=== PATIENT | female | born 1930 | race Caucasian/White ===

== ENCOUNTER → 2016-05-15 | Outpatient (CLI) | payer OTHER ==
[~2016-05-15] MED LIST: ACET-1256 PO; ADVIN50/60 INH; ALBU0.08 NEB; ALBU1AER9 INH; ARTIFICAL TEARS OPB; ARTISPR OR; ASPI81TA21 PO; ATRINS INH; Amoxicillin/Clavulanate Potas PO; BECL0.3A INH; CITA40TA12 PO; DEXT30TA7 PO; DULCOLAX SUPPOSITORY RE; FLUT0.0529 NAE; FURO-85 PO; GFNSR600 PO; INSDGIPEN SC; IPRASOL4 INH; LDDP5 TD; LEVO50TA6 PO; LORA-741 PO; LVMI IM; MOML PO; MONT1TAB5 PO; NVLGI7030 SC; NVLGIPEN SC; OMEP20CA59 PO; PRNJ PO; PROM1SUP19 PR; PRT40 PO; SIMV20TA2 PO; SODIENE PR; TRAM-10 PO; TYLOTC500 PO; XPNINS1255 INH; ZNTT/150 PO
[2016-05-15 08:37] LABS: FERRITIN 20.5 ng/ml (8.0-388.0)
[2016-05-15 08:49] LABS: BASO % 1.3 %; BASO ABS # 0.09 K/uL (0-0.2); COMPLETE YES; EOS % 9.6 %; HEMATOCRIT 29.9 % (37-47); IG% 0.1 %; LYMPH % 19.9 %; LYMPH ABS # 1.33 K/uL (1.2-3.4); MEAN CELL VOLUME 80.8 fL (80-100); MEAN CORPUSCULAR HEMOGLOBIN 24.6 pg (25-34); MEAN CORPUSCULAR HGB CONC 30.4 g/dl (32-36); MEAN PLATELET VOLUME 10.2 fL (7.4-10.4); MONO % 11.7 %; NEUT % 57.4 %; PLATELET COUNT 272 K/uL (130-400); WHITE BLOOD COUNT 6.69 K/uL (4.8-10.8)
== END ==
LOC: C.LABCC 07:49
PROVIDERS: ATTEND Internal Medicine
DX: E61.1 Iron deficiency (principal); D64.9 Anemia, unspecified; Z13.0 Encounter for screening for diseases of the blood and blood-forming organs and certain disorders involving the immune mechanism

== ENCOUNTER → 2016-06-01 | Outpatient (CLI) | payer OTHER ==
[~2016-06-01] MED LIST changes: -ACET-1256 PO; -ALBU1AER9 INH; -ATRINS INH; -Amoxicillin/Clavulanate Potas PO; -BECL0.3A INH; -INSDGIPEN SC; -LDDP5 TD; -NVLGIPEN SC; -PRT40 PO; -TRAM-10 PO; -TYLOTC500 PO; -XPNINS1255 INH
[2016-06-01 08:25] LABS: BASO % 0.1 %; BASO ABS # 0.01 K/uL (0-0.2); COMPLETE YES; EOS % 1.9 %; HEMATOCRIT 31.8 % (37-47); IG% 1.5 %; LYMPH % 25.6 %; LYMPH ABS # 2.19 K/uL (1.2-3.4); MEAN CELL VOLUME 79.7 fL (80-100); MEAN CORPUSCULAR HEMOGLOBIN 25.1 pg (25-34); MEAN CORPUSCULAR HGB CONC 31.4 g/dl (32-36); MEAN PLATELET VOLUME 9.7 fL (7.4-10.4); MONO % 9.1 %; NEUT % 61.8 %; PLATELET COUNT 265 K/uL (130-400); RED BLOOD COUNT 3.99 M/uL (4.2-5.4); WHITE BLOOD COUNT 8.54 K/uL (4.8-10.8)
[2016-06-01 08:37] LABS: FERRITIN 547.8 ng/ml (8.0-388.0)
== END ==
LOC: C.LABCC 08:09
PROVIDERS: ATTEND Internal Medicine
DX: E61.1 Iron deficiency (principal)

== ENCOUNTER → 2016-07-23 | Outpatient (CLI) | payer OTHER ==
[2016-07-23 08:50] LABS: BASO % 0.9 %; BASO ABS # 0.05 K/uL (0-0.2); COMPLETE YES; EOS % 9.2 %; IG% 0.2 %; LYMPH % 28.4 %; LYMPH ABS # 1.66 K/uL (1.2-3.4); MEAN CELL VOLUME 88.2 fL (80-100); MEAN CORPUSCULAR HEMOGLOBIN 28.3 pg (25-34); MEAN CORPUSCULAR HGB CONC 32.1 g/dl (32-36); MEAN PLATELET VOLUME 10.2 fL (7.4-10.4); MONO % 11.6 %; NEUT % 49.7 %; PLATELET COUNT 255 K/uL (130-400); RED BLOOD COUNT 4.31 M/uL (4.2-5.4); WHITE BLOOD COUNT 5.84 K/uL (4.8-10.8)
[2016-07-23 09:08] LABS: BLOOD UREA NITROGEN 27 mg/dl (7-18); BUN/CREATININE RATIO 13.6 (10-20); CALCIUM 8.9 mg/dl (8.5-10.1); CARBON DIOXIDE 25 mmol/L (21-32); CHLORIDE 110 mmol/L (98-107); GLUCOSE 131 mg/dl (70-99); POTASSIUM 4.1 mmol/L (3.5-5.1); SODIUM 143 mmol/L (136-145)
[2016-07-23 09:12] LABS: FERRITIN 91.2 ng/ml (8.0-388.0); PHOSPHORUS 3.9 mg/dl (2.5-4.9); TOTAL IRON BINDING CAPACITY 230 mcg/dl (250-450)
== END ==
LOC: C.LABCC 08:18
PROVIDERS: ATTEND Internal Medicine
DX: I12.9 Hypertensive chronic kidney disease with stage 1 through stage 4 chronic kidney disease, or unspecified chronic kidney disease (principal); N18.3 Chronic kidney disease, stage 3 (moderate)

== ENCOUNTER → 2016-08-04 | Outpatient (CLI) | payer OTHER | LOC: C.LABCC 08:25 | PROVIDERS: ATTEND Internal Medicine | DX: E03.9 Hypothyroidism, unspecified (principal) ==

== ENCOUNTER → 2016-09-15 | Outpatient (CLI) | payer OTHER ==
[2016-09-15 08:05] LABS: BASO % 0.8 %; BASO ABS # 0.05 K/uL (0-0.2); COMPLETE YES; EOS % 8.5 %; HEMATOCRIT 35.8 % (37-47); IG% 0.2 %; LYMPH % 22.4 %; LYMPH ABS # 1.42 K/uL (1.2-3.4); MEAN CORPUSCULAR HEMOGLOBIN 29.8 pg (25-34); MEAN CORPUSCULAR HGB CONC 32.4 g/dl (32-36); MEAN PLATELET VOLUME 10.2 fL (7.4-10.4); MONO % 9.5 %; NEUT % 58.6 %; PLATELET COUNT 211 K/uL (130-400); RED BLOOD COUNT 3.89 M/uL (4.2-5.4); WHITE BLOOD COUNT 6.33 K/uL (4.8-10.8)
[2016-09-15 08:13] LABS: PARTIAL THROMBOPLASTIN RATIO 1.1; PROTHROMBIN TIME (PATIENT) 10.5 SECONDS (9.0-12.0)
[2016-09-15 08:14] LABS: ALT/SGPT 22 U/L (12-78); BLOOD UREA NITROGEN 29 mg/dl (7-18); BUN/CREATININE RATIO 17.1 (10-20); CARBON DIOXIDE 26 mmol/L (21-32); CHLORIDE 109 mmol/L (98-107); GLUCOSE 130 mg/dl (70-99); POTASSIUM 4.2 mmol/L (3.5-5.1); SODIUM 142 mmol/L (136-145)
[2016-09-15 08:16] LABS: ALKALINE PHOSPHATASE 85 U/L (45-117); AST/SGOT 17 U/L (15-37)
== END ==
LOC: C.LABCC 07:50
PROVIDERS: ATTEND Internal Medicine
DX: S40.022A Contusion of left upper arm, initial encounter (principal); X58.XXXA Exposure to other specified factors, initial encounter

== ENCOUNTER → 2016-09-21 | Outpatient (CLI) | payer OTHER ==
--- NOTE | 2016-09-21 14:00 | DIAGNOSTIC IMAGING REPORT ---
LEFT ARM ULTRASOUND CLINICAL HISTORY: PARTIAL LEFT BICEP TEAR HEMATOMA COMPARISON STUDY: No previous studies for comparison. FINDINGS: There is a 10 cm complex mass involving the biceps. This likely represents a hematoma. The findings are likely secondary to a biceps tear. Images are not adequate to determine with this represents a complete biceps rupture. An MRI could be obtained in follow-up as deemed clinically indicated. IMPRESSION: 10 cm mass involving the biceps consistent with a hematoma. The findings are consistent with a biceps tear. A complete rupture cannot be excluded. An MRI could be obtained in follow-up as deemed clinically indicated. Electronically signed by: Tomas Carter M.D. 09/21/2016 1:59 PM Dictated Date/Time: 09/21/2016 1:53 PM
== END | disposition home or self-care (01) ==
LOC: C.ULTRBC 13:33
PROVIDERS: ATTEND Nurse Practitioner Adult Health
DX: S40.022A Contusion of left upper arm, initial encounter (principal); S46.112A Strain of muscle, fascia and tendon of long head of biceps, left arm, initial encounter; X58.XXXA Exposure to other specified factors, initial encounter

== ENCOUNTER → 2016-09-25 | Outpatient (CLI) | payer OTHER ==
[2016-09-25 08:18] LABS: BASO % 0.9 %; BASO ABS # 0.06 K/uL (0-0.2); COMPLETE YES; EOS % 9.5 %; HEMATOCRIT 35.9 % (37-47); IG% 0.2 %; LYMPH % 23.3 %; LYMPH ABS # 1.55 K/uL (1.2-3.4); MEAN CORPUSCULAR HEMOGLOBIN 30.1 pg (25-34); MEAN CORPUSCULAR HGB CONC 32.3 g/dl (32-36); MEAN PLATELET VOLUME 9.9 fL (7.4-10.4); MONO % 11.1 %; PLATELET COUNT 256 K/uL (130-400); RED BLOOD COUNT 3.86 M/uL (4.2-5.4); WHITE BLOOD COUNT 6.64 K/uL (4.8-10.8)
--- NOTE | 2016-10-09 12:41 | CODING QUERY NO DIAGNOSIS ---
TREATMENT RENDERED WITHOUT A DIAGNOSIS To promote full compliance with coding requirements relating to patient care, physician participation is requested in all cases of global marketing specialist uncertainty. Please assist us with providing a diagnosis/symptom for the test(s) below: A diagnosis/symptom was not documented on your Order. A valid diagnosis/symptom is required to bill all insurances. Please remember that we are unable to code a diagnosis of rule out, probable, possible, questionable, or suspected. Tests that require a diagnosis: * CBC W/ AUTO DIFF DIAGNOSIS: Provider Signature: Date: Thank you Bruna Bern [employer] Once completed, please kindly fax back to [phone] For questions please call [phone]
== END ==
LOC: C.LABCC 08:02
PROVIDERS: ATTEND Internal Medicine
DX: S40.022A Contusion of left upper arm, initial encounter (principal); X58.XXXA Exposure to other specified factors, initial encounter

== ENCOUNTER → 2016-10-07 | Outpatient (CLI) | payer OTHER ==
[2016-10-07 13:07] LABS: ESTIMATED AVERAGE GLUCOSE 183 mg/dl; HA1C FLAG Normal (Normal)
== END ==
LOC: C.LABCC 15:41
PROVIDERS: ATTEND Internal Medicine
DX: E11.9 Type 2 diabetes mellitus without complications (principal)

== ENCOUNTER → 2016-10-29 | Outpatient (CLI) | payer OTHER ==
[2016-10-29 08:44] LABS: BASO % 0.6 %; BASO ABS # 0.06 K/uL (0-0.2); COMPLETE YES; EOS % 5.3 %; HEMATOCRIT 33.6 % (37-47); IG% 0.3 %; LYMPH % 19.5 %; LYMPH ABS # 1.87 K/uL (1.2-3.4); MEAN CELL VOLUME 92.1 fL (80-100); MEAN CORPUSCULAR HEMOGLOBIN 30.4 pg (25-34); MEAN PLATELET VOLUME 10.3 fL (7.4-10.4); MONO % 7.5 %; NEUT % 66.8 %; PLATELET COUNT 223 K/uL (130-400); RED BLOOD COUNT 3.65 M/uL (4.2-5.4); WHITE BLOOD COUNT 9.58 K/uL (4.8-10.8)
[2016-10-29 08:56] LABS: ALT/SGPT 29 U/L (12-78); BLOOD UREA NITROGEN 28 mg/dl (7-18); BUN/CREATININE RATIO 14.2 (10-20); CARBON DIOXIDE 25 mmol/L (21-32); CHLORIDE 106 mmol/L (98-107); GLUCOSE 154 mg/dl (70-99); POTASSIUM 3.9 mmol/L (3.5-5.1); SODIUM 139 mmol/L (136-145)
[2016-10-29 09:07] LABS: ALB/GLOB RATIO 0.9 (0.9-2); ALKALINE PHOSPHATASE 85 U/L (45-117); AST/SGOT 20 U/L (15-37)
[2016-10-29 09:11] LABS: CALCIUM 8.8 mg/dl (8.5-10.1)
== END ==
LOC: C.LABCC 07:42
PROVIDERS: ATTEND Internal Medicine
DX: R60.9 Edema, unspecified (principal)

== ENCOUNTER → 2016-10-30 | Outpatient (CLI) | payer OTHER ==
[2016-10-30 09:18] LABS: URINE APPEARANCE CLEAR (CLEAR); URINE BILIRUBIN NEG (NEG); URINE COLOR YELLOW; URINE NITRITE NEG (NEG); URINE SPECIFIC GRAVITY 1.019 (1.000-1.030); UROBILINOGEN NEG (NEG); ZZUR CULT IF INDIC CLEAN CATCH NO
[2016-10-30 09:25] LABS: MANUAL MICROSCOPIC REQUIRED? NO; REVIEW REQ? NO
== END ==
LOC: C.LABCC 07:30
PROVIDERS: ATTEND Internal Medicine
DX: R60.9 Edema, unspecified (principal)

== ENCOUNTER → 2016-11-02 | Outpatient (CLI) | payer OTHER ==
[2016-11-02 11:08] LABS: BLOOD UREA NITROGEN 29 mg/dl (7-18); BUN/CREATININE RATIO 15.4 (10-20); CALCIUM 8.6 mg/dl (8.5-10.1); CARBON DIOXIDE 25 mmol/L (21-32); CHLORIDE 108 mmol/L (98-107); GLUCOSE 231 mg/dl (70-99); POTASSIUM 4.2 mmol/L (3.5-5.1); SODIUM 141 mmol/L (136-145)
== END | disposition home or self-care (01) ==
LOC: C.LABCC 08:39
PROVIDERS: ATTEND Internal Medicine
DX: R60.9 Edema, unspecified (principal)

== ENCOUNTER → 2016-11-05 | Outpatient (CLI) | payer OTHER ==
[2016-11-05 09:06] LABS: BLOOD UREA NITROGEN 31 mg/dl (7-18); BUN/CREATININE RATIO 16.5 (10-20); CALCIUM 8.7 mg/dl (8.5-10.1); CARBON DIOXIDE 28 mmol/L (21-32); CHLORIDE 108 mmol/L (98-107); GLUCOSE 173 mg/dl (70-99); POTASSIUM 4.3 mmol/L (3.5-5.1); SODIUM 142 mmol/L (136-145)
== END ==
LOC: C.LABCC 07:56
PROVIDERS: ATTEND Internal Medicine
DX: R60.9 Edema, unspecified (principal); N28.9 Disorder of kidney and ureter, unspecified; R79.89 Other specified abnormal findings of blood chemistry

== ENCOUNTER → 2016-12-07 | Outpatient (CLI) | payer OTHER ==
[2016-12-07 11:17] LABS: BLOOD UREA NITROGEN 32 mg/dl (7-18); BUN/CREATININE RATIO 15.8 (10-20); CALCIUM 8.8 mg/dl (8.5-10.1); CARBON DIOXIDE 26 mmol/L (21-32); CHLORIDE 106 mmol/L (98-107); GLUCOSE 151 mg/dl (70-99); POTASSIUM 3.9 mmol/L (3.5-5.1); SODIUM 140 mmol/L (136-145)
== END ==
LOC: C.LABCC 09:05
PROVIDERS: ATTEND Internal Medicine
DX: N18.3 Chronic kidney disease, stage 3 (moderate) (principal)

== ENCOUNTER → 2017-02-05 | Outpatient (CLI) | payer OTHER ==
[2017-02-05 08:26] LABS: ALKALINE PHOSPHATASE 92 U/L (45-117); ALT/SGPT 28 U/L (12-78); AST/SGOT 25 U/L (15-37); CHOLESTEROL 122 mg/dl (0-200); CHOLESTEROL/HDL RATIO 2.7; HDL CHOLESTEROL 46 mg/dl; LDL CHOLESTEROL CALCULATED 49 mg/dl; TRIGLYCERIDES 135 mg/dl (0-150); VERY LOW DENSITY LIPOPROT CALC 27 mg/dl
[2017-02-05 09:53] LABS: ESTIMATED AVERAGE GLUCOSE 183 mg/dl; HA1C FLAG Normal (Normal)
== END ==
LOC: C.LABCC 07:41
PROVIDERS: ATTEND Internal Medicine
DX: E11.9 Type 2 diabetes mellitus without complications (principal); E78.5 Hyperlipidemia, unspecified

== ENCOUNTER → 2017-04-12 | Outpatient (CLI) | payer OTHER ==
[2017-04-12 09:48] LABS: FERRITIN 45.2 ng/ml (8.0-388.0); THYROID STIMULATING HORMONE 3.83 uIu/ml (0.300-4.500)
== END ==
LOC: C.LABCC 08:39
PROVIDERS: ATTEND Internal Medicine
DX: D64.9 Anemia, unspecified (principal)

== ENCOUNTER → 2017-06-14 | Outpatient (CLI) | payer OTHER ==
[2017-06-14 09:32] LABS: BLOOD UREA NITROGEN 32 mg/dl (7-18); CALCIUM 8.7 mg/dl (8.5-10.1); CARBON DIOXIDE 26 mmol/L (21-32); CREATININE 1.86 mg/dl (0.60-1.20); GLUCOSE 162 mg/dl (70-99); POTASSIUM 4.2 mmol/L (3.5-5.1); SODIUM 138 mmol/L (136-145)
[2017-06-14 09:45] LABS: HEMOGLOBIN A1C 7.7 % (4.5-5.6)
== END ==
LOC: C.LABCC 08:41
PROVIDERS: ATTEND Internal Medicine
DX: E11.22 Type 2 diabetes mellitus with diabetic chronic kidney disease (principal); N18.3 Chronic kidney disease, stage 3 (moderate)

== ENCOUNTER → 2017-09-03 | Outpatient (CLI) | payer OTHER ==
[~2017-09-03] MED LIST changes: +ASPI-319 PO; -ASPI81TA21 PO; +RANI150T85 PO; -ZNTT/150 PO
--- NOTE | 2017-09-08 11:06 | CODING QUERY NO DIAGNOSIS ---
TREATMENT RENDERED WITHOUT A DIAGNOSIS To promote full compliance with coding requirements relating to patient care, physician participation is requested in all cases of breaker engineer uncertainty. Please assist us with providing a diagnosis/symptom for the test(s) below: A diagnosis/symptom was not documented on your Order. A valid diagnosis/symptom is required to bill all insurances. Please remember that we are unable to code a diagnosis of rule out, probable, possible, questionable, or suspected. Tests that require a diagnosis: DOS 09/03 * Urine Culture DIAGNOSIS: Provider Signature: Date: Thank you Ayah Gonzalez [employer] Once completed, please kindly fax back to [phone] For questions please call [phone]
== END ==
LOC: C.LABSPEC 16:40
PROVIDERS: ATTEND Internal Medicine
DX: E11.22 Type 2 diabetes mellitus with diabetic chronic kidney disease (principal); N18.3 Chronic kidney disease, stage 3 (moderate)

== ENCOUNTER → 2017-09-06 | Outpatient (CLI) | payer OTHER ==
[2017-09-06 08:56] LABS: BASO % 0.7 %; BASO ABS # 0.05 K/uL (0-0.2); EOS % 7.9 %; EOS ABS # 0.57 K/uL (0-0.5); HEMATOCRIT 36.2 % (37-47); HEMOGLOBIN 11.6 g/dL (12.0-16.0); IG# 0.01 K/uL (0.00-0.02); LYMPH % 23.7 %; LYMPH ABS # 1.71 K/uL (1.2-3.4); MEAN CELL VOLUME 92.3 fL (80-100); MEAN CORPUSCULAR HEMOGLOBIN 29.6 pg (25-34); MONO % 8.6 %; MONO ABS # 0.62 K/uL (0.11-0.59); NEUT ABS # 4.25 K/uL (1.4-6.5); PLATELET COUNT 223 K/uL (130-400); RED CELL DISTRIBUTION WIDTH CV 13.3 % (11.5-14.5); RED CELL DISTRIBUTION WIDTH SD 45.2 fL (36.4-46.3); WHITE BLOOD COUNT 7.21 K/uL (4.8-10.8)
[2017-09-06 09:05] LABS: ALBUMIN 3.1 gm/dl (3.4-5.0); BLOOD UREA NITROGEN 28 mg/dl (7-18); CALCIUM 8.5 mg/dl (8.5-10.1); CARBON DIOXIDE 27 mmol/L (21-32); CREATININE 1.63 mg/dl (0.60-1.20); GLUCOSE 146 mg/dl (70-99); POTASSIUM 4.3 mmol/L (3.5-5.1); SODIUM 140 mmol/L (136-145)
[2017-09-06 09:06] LABS: PHOSPHORUS 3.2 mg/dl (2.5-4.9)
== END | disposition home or self-care (01) ==
LOC: C.LABCC 08:09
PROVIDERS: ATTEND Internal Medicine
DX: E11.22 Type 2 diabetes mellitus with diabetic chronic kidney disease (principal); N18.3 Chronic kidney disease, stage 3 (moderate)

== ENCOUNTER → 2017-09-07 | Outpatient (CLI) | payer OTHER | LOC: C.LABCC 08:46 | PROVIDERS: ATTEND Internal Medicine | DX: E11.22 Type 2 diabetes mellitus with diabetic chronic kidney disease (principal); N18.3 Chronic kidney disease, stage 3 (moderate) ==

== ENCOUNTER → 2017-12-07 | Outpatient (CLI) | payer OTHER ==
[~2017-12-07] MED LIST changes: +IPRA-64 INH; -IPRASOL4 INH
== END ==
LOC: C.LABCC 09:30
PROVIDERS: ATTEND Internal Medicine
DX: E78.5 Hyperlipidemia, unspecified (principal)

== ENCOUNTER → 2017-12-08 | Outpatient (CLI) | payer OTHER | LOC: C.LABCC 08:12 | PROVIDERS: ATTEND Internal Medicine | DX: E55.9 Vitamin D deficiency, unspecified (principal) ==